=== PATIENT | male | born 1945 | race Caucasian/White ===

== ENCOUNTER 2017-01-20 14:15 | Day surgery (SDC) | payer OTHER ==
[~2017-01-20] VITALS: Ht 175.3 cm; Wt 104.3 kg
[~2017-01-20 14:15] MED LIST: AMLODIPINE BESY10 MG PO; ATORVASTATIN CA40 MG PO; COUMADIN2.5 MG PO; IRON325 M1 PO; LISINOPRIL40 MG PO; LITE COAT ASPI325 M1 PO; METFORMIN HCL500 MG PO; METOPROLOL TAR100 MG PO; MOBIC7.5 MG PO; NITROSTAT0.4 MG SL; PERCOCET 5/31 TABLET PO; VISTARIL25 MG PO
[2017-01-20 14:54] LABS: POINT-OF-CARE METER ID UU14174212
== END 2017-01-20 15:35 | disposition home or self-care (01) ==
LOC: PAIN 14:15 → SDC 15:00 → PAIN 15:35
PROVIDERS: Anesthesiology Pain Medicine
PROC: 3E0T3TZ Introduction of Destructive Agent into Peripheral Nerves and Plexi, Percutaneous Approach (ICD-10-PCS; principal; 2017-01-20)
PROC: BR161ZZ Fluoroscopy of Lumbar Facet Joint(s) using Low Osmolar Contrast (ICD-10-PCS; 2017-01-20)
DX: M47.816 Spondylosis without myelopathy or radiculopathy, lumbar region (principal); M25.551 Pain in right hip; I70.90 Unspecified atherosclerosis; I10 Essential (primary) hypertension; E78.5 Hyperlipidemia, unspecified; E11.9 Type 2 diabetes mellitus without complications; K57.90 Diverticulosis of intestine, part unspecified, without perforation or abscess without bleeding; Z87.891 Personal history of nicotine dependence; Z79.82 Long term (current) use of aspirin; Z79.84 Long term (current) use of oral hypoglycemic drugs
CPT/HCPCS: 82948; J1030; J2250; J3010; S0020